=== PATIENT | female | born 1995 | race Caucasian/White ===

== ENCOUNTER 2017-10-06 13:03 | Emergency (ER) | payer SELFPAY ==
[2017-10-06] MEDS ORDERED: LEVE-14 PO (13:13)
--- NOTE | 2017-10-06 13:24 | ER Report ---
History and Physical Time Seen By MD: 13:22 Hx. of Stated Complaint: SEIZURE HPI/ROS CHIEF COMPLAINT: Tonic clonic seizure HISTORY OF PRESENT ILLNESS: Patient is a 22-year-old female with known history of tonic-clonic seizures had an episode that lasted approximate 45 seconds today according to family. Patient is diagnosed previously with epilepsy and is on Keppra for seizures. No recent change in her medication according to the family. Patient did have a fall and seizure last week and had a head injury but was not seen by a physician at that time. Currently the patient is complaining of some nausea and epigastric abdominal pain. Patient did have episode of vomiting after the seizure. No history of any infectious type symptoms including fevers or chills. Patient denies chest pain or shortness of breath REVIEW OF SYSTEMS: Constitutional: No fever, no chills. Eyes: No discharge. ENT: No sore throat. Cardiovascular: No chest pain, no palpitations. Respiratory: No cough, no shortness of breath. Gastrointestinal: No abdominal pain, no vomiting. Genitourinary: No hematuria. Musculoskeletal: No back pain. Skin: No rashes. Neurological: No headache. Seizure Allergies: Coded Allergies: Sulfa (Sulfonamide Antibiotics) (Verified Allergy, Unknown, 10/06/17) Home Meds Active Scripts Ondansetron Hcl (ZOFRAN) 4 Mg Tablet, 4 MG PO Q8H for Nausea, #15 TAB 0 Refills Prov:INLESH DEMARCO MD 10/06/17 Reported Medications Levetiracetam (KEPPRA) 500 Mg Tablet, MG PO QDAY, TAB 10/06/17 Past Medical/Surgical History History of seizure disorder on Keppra Constitutional Vital Sign - Last 24 Hours 10/06/17 10/06/17 10/06/17 13:11 14:00 14:30 Pulse 91 77 84 Resp 18 9 21 B/P (MAP) 119/70 105/75 (85) 105/59 (74) Pulse Ox 92 96 94 O2 Delivery Room Air Intake and Output 10/06/17 10/06/17 10/07/17 15:00 23:00 07:00 Intake Total 1000 ml Balance 1000 ml Physical Exam General Appearance: The patient is alert, has no immediate need for airway protection and no current signs of toxicity. Eyes: Pupils equal and round no injection. Respiratory: Chest is non tender, lungs are clear to auscultation. Cardiac: regular rate and rhythm Gastrointestinal: Abdomen is soft and non tender, no masses, bowel sounds normal. Musculoskeletal: Neck: Neck is supple and non tender. Extremities have full range of motion and are non tender. Skin: No rashes or lesions. Neurologic patient is slightly postictal period but is able to answer questions. Patient able to move all extremities and no current seizure activity. Medical Decision Making Data Points Result Diagram: 10/06/17 1318 10/06/17 1318 Laboratory Hematology Test 10/06/17 13:16 10/06/17 13:18 10/06/17 14:40 Whole Blood Glucose 129 mg/DL (75-110) Red Blood Count 4.82 M/uL (4.17-5.56) Mean Corpuscular Volume 87.0 fL (80.0-96.0) Mean Corpuscular Hemoglobin 29.5 pg (26.0-33.0) Mean Corpuscular Hemoglobin Concent 33.9 g/dL (32.0-36.0) Red Cell Distribution Width 12.8 % (11.5-14.5) Mean Platelet Volume 9.3 fL (7.2-11.1) Neutrophils (%) (Auto) 63.8 % (39.4-72.5) Lymphocytes (%) (Auto) 26.6 % (17.6-49.6) Monocytes (%) (Auto) 8.0 % (4.1-12.4) Eosinophils (%) (Auto) 1.1 % (0.4-6.7) Basophils (%) (Auto) 0.5 % (0.3-1.4) Nucleated RBC Relative Count (auto) 0.1 /100WBC Neutrophils # (Auto) 8.2 K/uL (2.0-7.4) Lymphocytes # (Auto) 3.4 K/uL (1.3-3.6) Monocytes # (Auto) 1.0 K/uL (0.3-1.0) Eosinophils # (Auto) 0.1 K/uL (0.0-0.5) Basophils # (Auto) 0.1 K/uL (0.0-0.1) Nucleated RBC Absolute Count (auto) 0.01 K/uL Sodium Level 138 mmol/L (137-145) Potassium Level 3.5 mmol/L (3.5-5.0) Chloride Level 102 mmol/L (98-107) Carbon Dioxide Level 17 mmol/L (22-31) Blood Urea Nitrogen 11 mg/dl (7-18) Creatinine 0.70 mg/dl (0.52-1.04) Glomerular Filtration Rate Calc > 60.0 Random Glucose 128 mg/dl (75-110) Calcium Level 8.8 mg/dl (8.4-10.2) Magnesium Level 2.0 mg/dl (1.7-2.2) Total Bilirubin 1.0 mg/dl (0.2-1.3) Aspartate Amino Transf (AST/SGOT) 26 U/L (0-35) Alanine Aminotransferase (ALT/SGPT) 20 U/L (0-56) Alkaline Phosphatase 56 U/L (0-126) Total Protein 7.5 g/dl (6.3-8.2) Albumin 4.7 g/dl (3.5-5.0) Human Chorionic Gonadotropin, Qual Negative (NEGATIVE) Serum Alcohol < 10 mg/dl Urine Color Yellow Urine Clarity Clear Urine pH 5.0 pH (4.8-9.5) Urine Specific [place] 1.016 Urine Protein Negative mg/dL (NEGATIVE) Urine Glucose (UA) Negative mg/dL (NEGATIVE) Urine Ketones Trace mg/dL (NEGATIVE) Urine Blood Negative (NEGATIVE) Urine Nitrite Negative (NEGATIVE) Urine Bilirubin Negative (NEGATIVE) Urine Urobilinogen Negative mg/dL (0.2-1.9) Urine Leukocyte Esterase Negative (NEGATIVE) Urine RBC 1 /HPF (0-2/HPF) Urine WBC 2 /HPF (0-5/HPF) Urine Squamous Epithelial Cells Many /LPF (</=FEW) Urine Bacteria Few /HPF (NONE-FEW) Urine Mucus Few /HPF (NONE-FEW) Urine Opiates Screen Negative Urine Barbiturates Screen Negative Ur Tricyclic Antidepressants Screen Negative Urine Phencyclidine Screen Negative Urine Amphetamines Screen Negative Urine Benzodiazepines Screen Negative Urine Cocaine Screen Negative Urine Cannabinoids Screen Negative Chemistry Test 10/06/17 13:16 10/06/17 13:18 10/06/17 14:40 Whole Blood Glucose 129 mg/DL (75-110) White Blood Count 12.9 k/uL (4.5-11.0) Red Blood Count 4.82 M/uL (4.17-5.56) Hemoglobin 14.2 g/dL (12.0-16.0) Hematocrit 41.9 % (34.0-47.0) Mean Corpuscular Volume 87.0 fL (80.0-96.0) Mean Corpuscular Hemoglobin 29.5 pg (26.0-33.0) Mean Corpuscular Hemoglobin Concent 33.9 g/dL (32.0-36.0) Red Cell Distribution Width 12.8 % (11.5-14.5) Platelet Count 281 K/uL (150-450) Mean Platelet Volume 9.3 fL (7.2-11.1) Neutrophils (%) (Auto) 63.8 % (39.4-72.5) Lymphocytes (%) (Auto) 26.6 % (17.6-49.6) Monocytes (%) (Auto) 8.0 % (4.1-12.4) Eosinophils (%) (Auto) 1.1 % (0.4-6.7) Basophils (%) (Auto) 0.5 % (0.3-1.4) Nucleated RBC Relative Count (auto) 0.1 /100WBC Neutrophils # (Auto) 8.2 K/uL (2.0-7.4) Lymphocytes # (Auto) 3.4 K/uL (1.3-3.6) Monocytes # (Auto) 1.0 K/uL (0.3-1.0) Eosinophils # (Auto) 0.1 K/uL (0.0-0.5) Basophils # (Auto) 0.1 K/uL (0.0-0.1) Nucleated RBC Absolute Count (auto) 0.01 K/uL Glomerular Filtration Rate Calc > 60.0 Calcium Level 8.8 mg/dl (8.4-10.2) Magnesium Level 2.0 mg/dl (1.7-2.2) Total Bilirubin 1.0 mg/dl (0.2-1.3) Aspartate Amino Transf (AST/SGOT) 26 U/L (0-35) Alanine Aminotransferase (ALT/SGPT) 20 U/L (0-56) Alkaline Phosphatase 56 U/L (0-126) Total Protein 7.5 g/dl (6.3-8.2) Albumin 4.7 g/dl (3.5-5.0) Human Chorionic Gonadotropin, Qual Negative (NEGATIVE) Serum Alcohol < 10 mg/dl Urine Color Yellow Urine Clarity Clear Urine pH 5.0 pH (4.8-9.5) Urine Specific [place] 1.016 Urine Protein Negative mg/dL (NEGATIVE) Urine Glucose (UA) Negative mg/dL (NEGATIVE) Urine Ketones Trace mg/dL (NEGATIVE) Urine Blood Negative (NEGATIVE) Urine Nitrite Negative (NEGATIVE) Urine Bilirubin Negative (NEGATIVE) Urine Urobilinogen Negative mg/dL (0.2-1.9) Urine Leukocyte Esterase Negative (NEGATIVE) Urine RBC 1 /HPF (0-2/HPF) Urine WBC 2 /HPF (0-5/HPF) Urine Squamous Epithelial Cells Many /LPF (</=FEW) Urine Bacteria Few /HPF (NONE-FEW) Urine Mucus Few /HPF (NONE-FEW) Urine Opiates Screen Negative Urine Barbiturates Screen Negative Ur Tricyclic Antidepressants Screen Negative Urine Phencyclidine Screen Negative Urine Amphetamines Screen Negative Urine Benzodiazepines Screen Negative Urine Cocaine Screen Negative Urine Cannabinoids Screen Negative Toxicology Test 10/06/17 13:18 10/06/17 14:40 Serum Alcohol < 10 mg/dl Urine Opiates Screen Negative Urine Barbiturates Screen Negative Ur Tricyclic Antidepressants Screen Negative Urine Phencyclidine Screen Negative Urine Amphetamines Screen Negative Urine Benzodiazepines Screen Negative Urine Cocaine Screen Negative Urine Cannabinoids Screen Negative Urinalysis Test 10/06/17 14:40 Urine Color Yellow Urine Clarity Clear Urine pH 5.0 pH (4.8-9.5) Urine Specific [place] 1.016 Urine Protein Negative mg/dL (NEGATIVE) Urine Glucose (UA) Negative mg/dL (NEGATIVE) Urine Ketones Trace mg/dL (NEGATIVE) Urine Blood Negative (NEGATIVE) Urine Nitrite Negative (NEGATIVE) Urine Bilirubin Negative (NEGATIVE) Urine Urobilinogen Negative mg/dL (0.2-1.9) Urine Leukocyte Esterase Negative (NEGATIVE) Urine RBC 1 /HPF (0-2/HPF) Urine WBC 2 /HPF (0-5/HPF) Urine Squamous Epithelial Cells Many /LPF (</=FEW) Urine Bacteria Few /HPF (NONE-FEW) Urine Mucus Few /HPF (NONE-FEW) EKG/Imaging Imaging FACILITY: [facility] PATIENT NAME: Ángel Sánchez : 1995 MR: [id number] V: [id number] EXAM DATE: [id number] ORDERING PHYSICIAN: NILESH DEMARCO TECHNOLOGIST: Location: [facility] - [place] Patient: Ángel Sánchez : 1995 Visit/Account:[id number] Date of Sevice: 10/06/2017 EXAMINATION: CT HEAD WITHOUT CONTRAST COMPARISON: None available HISTORY: Seizure. PROCEDURE: Noncontrast CT from the vertex through the skull base. One of the following dose optimization techniques was utilized in the performance of this exam: Automated exposure control; adjustment of the mA and/or kV according to the patient's size; or use of an iterative reconstruction technique. Specific details can be referenced in the facility's radiology CT exam operational policy. FINDINGS: Brain volume: Age-appropriate. Hemorrhage/extra-axial fluid: None. Mass effect/midline shift/edema: None. Ischemia: Crowder-white differentiation is preserved. Ventricles and basal cisterns: Within normal limits. Posterior fossa: Negative. Vessels: Negative. Calvarium, skull base, and scalp: Negative. Visualized sinuses and orbits: Within normal limits. IMPRESSION: Negative noncontrast head CT. Report Dictated By: Matt Vázquez MD at 10/06/2017 1:54 PM Report E-Signed By: Matt Vázquez MD at 10/06/2017 1:58 PM [id number] ED Course/Re-evaluation ED Course 10/06/2017 1:24:01 pm plan at this time will be seizure workup including CT of the head. We'll check a bedside glucometer. We'll check CBC CMP test Decision to Disposition Date: Oct 06, 2017 Decision to Disposition Time: 14:43 Depart Departure Latest Vital Signs Vital Signs Date Time Temp Pulse Resp B/P (MAP) Pulse Ox O2 Delivery O2 Flow Rate FiO2 10/06/17 14:30 84 21 105/59 (74) 94 10/06/17 13:11 Room Air Impression: Primary Impression: Seizure Condition: Improved Disposition: HOME OR SELF-CARE Referrals: MIRANDA DELGADO MD (PCP) Call to schedule follow-up appointment and to see if there should be any adjustments made to your current seizure medications. New Scripts Ondansetron Hcl (ZOFRAN) 4 Mg Tablet 4 MG PO Q8H for Nausea, #15 TAB 0 Refills Prov: NILESH DEMARCO MD 10/06/17 Patient Instructions: Recurrent Seizures in Adults (DC) Additional Instructions: Continue all your outpatient medications as directed. Call your neurologist to see if there should be any changes to your medications NILESH DEMARCO MD Oct 06, 2017 13:24
[2017-10-06] MEDS ORDERED: NS(*) 0.9% 1000 ML BAG 1,000 ML IV ONE (13:55)
[2017-10-06] MEDS ORDERED: ONDANSETRON 4 MG/2 ML VIAL IVP ONE (13:55)
--- NOTE | 2017-10-06 14:02 | RADIOLOGY IMAGING REPORT ---
[place] [facility] [place]: Ángel Sánchez : 1995 MR: [id number] V: [id number] EXAM DATE: ORDERING PHYSICIAN: NILESH DEMARCO TECHNOLOGIST: [place] [facility] [place]el Sán[place] : 1995 Visit/Account:[id number] Date of Sevice: 10/06/2017 EXAMINATION: CT HEAD WITHOUT CONTRAST COMPARISON: None available HISTORY: Seizure. PROCEDURE: Noncontrast CT from the vertex through the skull base. One of the following dose optimizat ion techniques was utilized in the performance of this exam: Automated exposure control; adjustment o f the mA and/or kV according to the patient's size; or use of an iterative reconstruction technique. Specific details can be referenced in the facility's radiology CT exam operational policy. FINDINGS: Brain volume: Age-appropriate. Hemorrhage/extra-axial fluid: None. Mass effect/midline shift/edema: None. Ischemia: Crowder-white differentiation is preserved. Ventricles and basal cisterns: Within normal limits. Posterior fossa: Negative. Vessels: Negative. Calvarium, skull base, and scalp: Negative. Visualized sinuses and orbits: Within normal limits. IMPRESSION: Negative noncontrast head CT. Report Dictated By: Matt Vázquez MD at 10/06/2017 1:54 PM Report E-Signed By: Matt Vázquez MD at 10/06/2017 1:58 PM [id number]
[2017-10-06 14:16] LABS: PLATELET COUNT, AUTOMATED 281 K/uL (150-450)
[2017-10-06 14:30] VITALS: BP 105/59
[2017-10-06] MEDS ORDERED: ONDA4TAB97 PO (14:48)
== END 2017-10-06 15:02 | disposition home or self-care (01) ==
LOC: ER 13:09
DX: R56.9 Unspecified convulsions (principal)
CPT/HCPCS: 36416; 70450; 80177; 80305; 80320; 81001; 82948; 83735; 84703; 85025; 96361; 96374; 99284; J2405; J7030; 82040; 82247; 82310; 82374; 82435; 82565; 82947; 84075; 84132; 84155; 84295; 84450; 84460; 84520